=== PATIENT | female | born 1975 | race African-American/Black ===

== ENCOUNTER 2019-05-27 11:35 | Emergency (ER) | payer MEDICAID ==
[~2019-05-27] VITALS: Ht 162.6 cm; Wt 89.8 kg
[2019-05-27] MEDS: KETOROLAC TROMETH 60MG/2ML VIAL IM ONE (11:45)
[2019-05-27 14:20] VITALS: BP 116/75
== END 2019-05-27 14:20 | disposition home or self-care (01) ==
LOC: EDBD 11:35 → ER 11:35 → EDUNIT# 11:35 → ER 14:20
DX: S16.1XXA Strain of muscle, fascia and tendon at neck level, initial encounter (principal); S70.02XA Contusion of left hip, initial encounter; S40.012A Contusion of left shoulder, initial encounter; I10 Essential (primary) hypertension; E07.9 Disorder of thyroid, unspecified; V49.49XA Driver injured in collision with other motor vehicles in traffic accident, initial encounter; Y93.89 Activity, other specified; Y99.8 Other external cause status; Y92.488 Other paved roadways as the place of occurrence of the external cause
CPT/HCPCS: 72125; 73030; 73502; 96372; 99284; J1885

== ENCOUNTER 2020-09-12 07:47 | Emergency (ER) | payer OTHER, MEDICAID ==
[~2020-09-12] VITALS: Ht 160 cm; Wt 89.8 kg
[2020-09-12 08:12] VITALS: BP 152/94
[2020-09-12] MEDS ORDERED: METHOCARBAMOL 500 MG TAB PO ONE (09:00)
[2020-09-12] MEDS ORDERED: KETOROLAC TROMETH 60MG/2ML VIAL IM ONE (09:00)
[2020-09-12] MEDS ORDERED: METHOCARBAMOL 500 MG TAB ONE (09:14)
== END 2020-09-12 10:05 | disposition home or self-care (01) ==
LOC: ER 07:47
DX: S16.1XXA Strain of muscle, fascia and tendon at neck level, initial encounter (principal); S30.1XXA Contusion of abdominal wall, initial encounter; M25.462 Effusion, left knee; M53.3 Sacrococcygeal disorders, not elsewhere classified; V43.52XA Car driver injured in collision with other type car in traffic accident, initial encounter; Y93.89 Activity, other specified; Y92.488 Other paved roadways as the place of occurrence of the external cause; Y99.8 Other external cause status
CPT/HCPCS: 72220; 73030; 73562; 96372; 99284; J1885